=== PATIENT | male | born 1960 | race Caucasian/White ===

== ENCOUNTER → 2020-09-02 | Outpatient (CLI) | payer OTHER ==
--- NOTE | 2020-09-02 15:27 | 2DMMODE ---
[place] [address] 2 D/M-MODE ECHOCARDIOGRAM Name: KENYON JENKINS Room: [facility]#: [id number] Admission: 09/02/20 Attend Phys: Jeff Tinsley DO Discharge: Date of : 58 Date of Service: 09/02/20 1527 Report #: [id number] THIS REPORT FOR: cc: Harvey Peoples Steve T. DO Liston, Michael J. MD [facility] ~ APPROVED REPORT Study performed: 09/02/2020 13:46:57 EXAM: Comprehensive 2D, Doppler, and color-flow Echocardiogram Patient Location: Out-Patient BSA: 1.77 HR: 65 bpm BP: 125/85 mmHg Other Information Study Quality: Good Indications Dyspnea 2D Dimensions IVSd: 13.50 (7-11mm) LVOT Diam: 23.28 (18-24mm) LVDd: 55.11 mm PWd: 11.79 (7-11mm) Ascending Ao: 34.37 (22-36mm) LVDs: 34.77 (25-40mm) Aortic Root: 31.69 mm Volumes Left Atrial Volume (Systole) LA ESV Index: 22.10 mL/m2 Aortic Valve AoV Peak Fidel.: 1.31 m/s AO Peak Gr.: 6.84 mmHg LVOT Max P.36 mmHg AO Mean Gr.: 3.90 mmHg LVOT Mean P.52 mmHg LVOT Max V: 1.26 m/s AO V2 VTI: 25.19 cm LVOT Mean V: 0.71 m/s SUZI (VTI): 3.87 cm2 LVOT V1 VTI: 22.89 cm Mitral Valve E/A Ratio: 0.83 [place] [address] 2 D/M-MODE ECHOCARDIOGRAM Name: KENYON JENKINS Room: [facility]#: [id number] Admission: 09/02/20 Attend Phys: Jeff Tinsley DO Discharge: Date of : 58 Date of Service: 09/02/20 1527 Report #: [id number] MV Decel. Time: 207.19 ms MV E Max Fidel.: 0.55 m/s MV PHT: 60.09 ms MVA (PHT): 3.66 cm2 TDI E/Lateral E': 6.88 E/Medial E': 9.17 Medial E' Fidel.: 0.06 m/s Lateral E' Fidel.: 0.08 m/s Pulmonary Valve PV Peak Fidel.: 0.91 m/s PV Peak Gr.: 3.34 mmHg Left Ventricle The left ventricle is normal size. There is normal LV segmental wall motion. Mild concentric left ventricular hypertrophy. Left ventricular systolic function is normal. LVEF is 55-60%. Grade I - abnormal relaxation pattern. Right Ventricle The right ventricle is normal size. The right ventricular systolic function is normal. Atria The left atrium size is normal. The right atrium size is normal. Aortic Valve Mild aortic valve sclerosis. No aortic regurgitation is present. There is no aortic valvular stenosis. Mitral Valve The mitral valve is normal in structure. There is no mitral valve regurgitation noted. No evidence of mitral valve stenosis. Tricuspid Valve The tricuspid valve is normal in structure. There is no tricuspid valve regurgitation noted. Pulmonic Valve The pulmonary valve is normal in structure. There is no pulmonic valvular regurgitation. Great Vessels The aortic root is normal in size. IVC is normal in size and collapses >50% [place] [address] 2 D/M-MODE ECHOCARDIOGRAM Name: KENYON JENKINS Room: [facility]#: [id number] Admission: 09/02/20 Attend Phys: Jeff Tinsley DO Discharge: Date of : 58 Date of Service: 09/02/20 1527 Report #: [id number] Pericardium There is no pericardial effusion. <Conclusion> The left ventricle is normal size. Mild concentric left ventricular hypertrophy. Left ventricular systolic function is normal. LVEF is 55-60%. Grade I - abnormal relaxation pattern. Mild aortic valve sclerosis. There is no aortic valvular stenosis. IVC is normal in size and collapses >50% with inspiration. <ELECTRONICALLY SIGNED> By: Brett Baker MD, FACC 09/02/20 1527 1527 1527 Brett Baker MD, FACC /INF
== END ==
LOC: M.CRD 13:36
PROVIDERS: ATTEND Family Medicine
DX: I35.1 Nonrheumatic aortic (valve) insufficiency (principal); I25.10 Atherosclerotic heart disease of native coronary artery without angina pectoris; Z86.16 Personal history of COVID-19

== ENCOUNTER → 2021-02-11 | Outpatient (CLI) | payer OTHER | LOC: M.MRI 08:21 | DX: M47.26 Other spondylosis with radiculopathy, lumbar region (principal); M48.061 Spinal stenosis, lumbar region without neurogenic claudication; M25.552 Pain in left hip ==